=== PATIENT | female | born 2000 | race Caucasian/White ===

== ENCOUNTER 2021-04-30 21:50 | Emergency (ER) | payer OTHER ==
[~2021-04-30] VITALS: Ht 177.8 cm; Wt 64.4 kg
[2021-04-30] MEDS ORDERED: MIGRAINE (22:07)
[2021-04-30] MEDS ORDERED: NEURONTIN 300M300 M2 PO (22:08)
[2021-04-30] MEDS ORDERED: ZOLOFT25 MG PO (22:08)
[2021-04-30 22:43] LABS: URINE BILIRUBIN NEGATIVE (Negative); URINE BLOOD NEGATIVE (Negative); URINE CLARITY CLEAR; URINE COLOR YELLOW; URINE GLUCOSE-RANDOM* NEGATIVE (Negative); URINE KETONES NEGATIVE (Negative); URINE LEUKOCYTES-REFLEX NEGATIVE (Negative); URINE NITRITE-REFLEX NEGATIVE (Negative); URINE PROTEIN (DIPSTICK) NEGATIVE (Negative); URINE SPECIFIC GRAVITY >= 1.030 (1.005-1.035); URINE UROBILINOGEN 0.2 E.U./dl (0.2-1.0)
[2021-04-30 22:55] LABS: AMP/METHAMP Negative (Negative); BARBITURATES Negative (Negative); BENZODIAZEPINES POSITIVE (Negative); COCAINE Negative (Negative); METHADONE Negative (Negative); OPIATES Negative (Negative); PCP Negative (Negative)
[2021-04-30 23:39] LABS: ABSOLUTE NEUTROPHILS 4.2 thou/uL (1.4-8.2); BASOPHILS 0.9 % (0.0-2.0); EOSINOPHILS 1.1 % (0.0-3.0); HEMATOCRIT 42.3 % (37.0-47.0); MCH 29.8 pg (26.0-34.0); MCHC 33.2 g/dL (28.0-37.0); MONOCYTES 8.5 % (1.0-8.0); PLATELET COUNT 283 thou/uL (150-400); POLYS 51.5 % (36.0-66.0); RDW 14.2 % (10.5-14.5); WBC 8.1 thou/uL (4.0-11.0)
[2021-05-01 00:17] LABS: ANION GAP 17 mmol/L (7-16); BUN 6 mg/dL (7-18); CALCIUM 9.8 mg/dL (8.5-10.1); CHLORIDE 103 mmol/L (98-107); CO2 24 mmol/L (21-32); CREATININE 0.8 mg/dL (0.6-1.0); GLUCOSE 87 mg/dL (74-106); POTASSIUM 3.7 mmol/L (3.5-5.1); SODIUM 144 mmol/L (136-145)
[2021-05-01 00:25] LABS: ALBUMIN 5.1 g/dL (3.4-5.0); SALICYLATE < 2.8 mg/dL (2.8-20.0); SGOT 18 U/L (15-37); SGPT 28 U/L (30-65); TOTAL BILIRUBIN 0.3 mg/dL (0.2-1.0); TOTAL PROTEIN 8.1 g/dL (6.4-8.2)
[2021-05-01] MEDS ORDERED: ATIVAN1 M1 PO (01:52)
[2021-05-01 02:30] VITALS: BP 107/62
--- NOTE | 2021-05-01 07:36 | EKG ---
[address] [facility] [place] [address] ELECTROCARDIOGRAM REPORT Name: TORO RAMOS Room #: JOSE ANOTNIO Hicks#: [id number] Admission: 04/30/21 Attend Phys: Discharge: 05/01/21 Date of : 89 Report #: [id number] [facility] ED Test Date: 2021-05-01 Test Time: 00:11:42 Pat Name: TORO RAMOS Department: Room: Gender: F [employer]: ricardo : 2000 Requested By: Guido Mendiola Order Number: [id number] MD: Aaron Bowling Measurements Intervals Jenkins Rate: 91 P: 52 HI: 128 QRS: 34 QRSD: 89 T: 32 QT: 370 QTc: 456 Interpretive Statements Sinus rhythm No previous ECG available for comparison Electronically Signed On 05-01-2021 7:36:03 CDT by Aaron Bowling [email or web address] <ELECTRONICALLY SIGNED> By: Aaron Bowling MD, [facility] 05/01/21 0736 0011 Aaron Bowling MD, FACC /EPI
== END 2021-05-01 02:30 | disposition home or self-care (01) ==
LOC: ER 21:50
PROVIDERS: Emergency Medicine
DX: R44.1 Visual hallucinations (principal); Z20.822 Contact with and (suspected) exposure to COVID-19; G43.909 Migraine, unspecified, not intractable, without status migrainosus; Z79.899 Other long term (current) drug therapy